=== PATIENT | male | born 1970 | race Two or more races ===

== ENCOUNTER 2020-01-09 19:14 | Emergency (ER) | payer MEDICAID ==
[~2020-01-09] VITALS: Ht 162.6 cm; Wt 68.0 kg
--- NOTE | 2020-01-09 19:35 | Emergency Room Report ---
History of Present Illness General Chief Complaint: Lower Extremity Injury Source: Patient Present Illness HPI Patient is a 49-year-old male past medical history of being overweight and hyperlipidemia who presents to the ER with 2 complaints. Patient complains of right lower extremity intermittent paresthesias. He states that the paresthesias began over a week ago. He states that he feels it more when he is been standing for a while or holding something heavy. He states that it is a tingling that runs along the side of his leg. He denies any trauma, fever, rash , focal weakness, changes to his bowel or bladder habits or history of IV drug use. He states that right now is a 1/10. Patient also complains of nausea. He states that it is associated with a sour taste in his mouth. He denies any vomiting. He denies any abdominal pain, constipation or diarrhea. Denies any chest pain or shortness of breath. Patient states that he is able to ambulate without any difficulty. Allergies: Coded Allergies: No Known Allergies (Unverified , 01/09/20) COVID-19 Screening Contact w/high risk pt: No Recent Travel to affected area: No Experienced COVID-19 symptoms?: No COVID-19 Testing performed TREATMENT COORDINATOR: No Patient History Reviewed Nursing Documentation: PMH: Agreed; PSxH: Agreed Review of Systems All Other Systems: negative except mentioned in HPI Physical Exam Vital Signs Date Time Temp Pulse Resp B/P (MAP) Pulse Ox O2 Delivery O2 Flow Rate FiO2 01/09/20 19:18 98.8 65 16 127/84 (98) 97 Room Air Sp02 EP Interpretation: reviewed, normal General Appearance: no apparent distress, alert, GCS 15, non-toxic Head: normocephalic, atraumatic Eyes: bilateral eye normal inspection, bilateral eye PERRL ENT: hearing grossly normal, normal pharynx, no angioedema, normal voice Neck: full range of motion, supple/symm/no masses Respiratory: chest non-tender, lungs clear, normal breath sounds, speaking full sentences Cardiovascular #1: regular rate, rhythm, no edema Gastrointestinal: normal bowel sounds, non tender, soft, non-distended, no guarding, no rebound, overweight Rectal: other - No saddle anesthesia, able to squeeze butt cheeks together Genitourinary: no CVA tenderness Musculoskeletal: back normal, normal range of motion, no calf tenderness, moves extm spontaneously, gait/station normal, no lower extremity edema, other - Right lateral lower lumbar back pain with no midline tenderness and no step- offs Neurologic: alert, motor strength/tone normal, hot roller III-XII nml as tested, oriented x3, sensory intact, responsive, speech normal, other - Has no current paresthesias Psychiatric: no suicidal/homicidal ideation Reflexes: 2+ knee (R), 2+ knee (L) Skin: no rash Lymphatic: no adenopathy Medical Decision Making Diagnostic Impression: Primary Impression: GERD (gastroesophageal reflux disease) Additional Impressions: Paresthesia Herniated lumbar intervertebral disc Bertolotti's syndrome ER Course I suspect the paresthesia that the patient is presenting with is non-emergent in etiology. Regarding the history, the patient denies gradual onset, trauma, fevers, night sweats, history of malignancy, pain worse at night, IVDU or refractory pain. Given these pertinent negatives in the history an emergent cause of the paresthesia is less likely. Also doubt cardiovascular cause of back pain such as aortic dissection or ruptured abdominal aortic aneurysm given patient with equal pulses in all 4 extremities with no diastolic murmur, or pulsatile abdominal mass. Epidural abscess considered unlikely given no fever or history of IVDU. The patient does not have history of malignancy so doubt metastasis to bone. Also doubt caudaequina syndrome since patient with no history of urinary/fecal incontinence or focal weakness or change in sensation. The patient was counseled that, though unlikely, the possibility of an emergent cause of paresthesia may still be present and that the patient should return immediately if symptoms persists or worsen. I believe the patient is stable for discharge to follow-up with their PMD for further workup and possible MRI. I have told him to obtain orthopedic/spine referral and given him a copy of his CT findings. Last Vital Signs Date Time Temp Pulse Resp B/P (MAP) Pulse Ox O2 Delivery O2 Flow Rate FiO2 01/09/20 19:18 98.8 65 16 127/84 (98) 97 Room Air Disposition: HOME, SELF-CARE Condition: Stable Scripts Famotidine* (Pepcid 20mg tablet*) 20 Mg Tablet 20 MG ORAL DAILY, #30 TAB 0 Refills Prov: Tawny Gipson M.D. 01/09/20 Ondansetron* (ZOFRAN*) 4 Mg Tablet 4 MG ORAL Q6H PRN for Nausea & Vomiting, #10 TAB Prov: aTwny Gipson M.D. 01/09/20 Additional Instructions: The patient was provided with discharge instructions, notified to follow-up with a primary care doctor and or specialist in the next 24-48 hours, and to return to the ED if they have worsening of their symptoms. Please note that this report is being documented using DRAGON technology. This can lead to erroneous entry secondary to incorrect interpretation by the dictating instrument. Tawny Gipson M.D. Jan 09, 2020 19:35
--- NOTE | 2020-01-09 19:35 | NUR ---
ED Nurse Note: Patient walked in c/o pain and numbness on RT foot for one week. Pt stated he has noticed swelling. Pt stated nausea. AAO x4, VSS at this time.
--- NOTE | 2020-01-09 19:36 | NUR ---
ED Nurse Note: Patient taken to CT
--- NOTE | 2020-01-09 19:55 | NUR ---
ED Nurse Note: patient is back
--- NOTE | 2020-01-09 20:12 | Diagnostic Imaging Report ---
EXAM: CT Lumbar Spine Without Intravenous Contrast CLINICAL HISTORY: PAIN TECHNIQUE: Axial computed tomography images of the lumbar spine without intravenous contrast. CTDI is 13.3 mGy and DLP is 527.3 mGy-cm. One or more of the following dose reduction techniques were used: automated exposure control, adjustment of the mA and/or kV according to patient size, use of iterative reconstruction technique. COMPARISON: No relevant prior studies available. FINDINGS: Vertebrae: There are 5 lumbar type vertebrae. L5 is partially sacralized bilaterally and shows pseudoarthrosis on the right at the transverse process-sacral articulation. No acute fracture. Soft tissues: Unremarkable. DISCS/SPINAL CANAL/NEURAL FORAMINA: L1-L2: Unremarkable. No significant disc disease. No stenosis. L2-L3: Unremarkable. No significant disc disease. No stenosis. L3-L4: Unremarkable. No significant disc disease. No stenosis. L4-L5: There is disc bulge and loss of height at L4-L5 with vacuum phenomenon. Mild central canal narrowing at L4-L5 is likely present due to disc degenerative change. L5-S1: Mild disc loss of height at L5-S1. No significant stenosis. Other findings: There is also early right greater than left sacroiliac degenerative change. The visualized hips are unremarkable. IMPRESSION: 1. No fracture or malalignment in the lumbar spine but L4-L5 degenerative change could result in mild central canal narrowing. 2. Partial sacralization of L5 right greater than left with pseudoarthrosis of the right lumbar sacral junction. Correlate for any evidence of Bertolotti's syndrome.
[2020-01-09] MEDS ORDERED: ZOFRAN4 M3 ORAL (20:17)
[2020-01-09] MEDS ORDERED: FAMOTIDINE20 MG ORAL (20:17)
[2020-01-09 20:28] VITALS: BP 127/84
--- NOTE | 2020-01-09 20:29 | NUR ---
ED Nurse Note: Pt cleared by health care Provider for discharge. DC instructions/prescription was given and explained to pt and verbalized understanding of teachings. All medical deviecs such as ID band removed. Pt is AAO x4, ambulatory and left with all personal belongings.
== END 2020-01-09 20:31 | disposition home or self-care (01) ==
LOC: EMR 19:47
DX: K21.9 Gastro-esophageal reflux disease without esophagitis (principal); R20.2 Paresthesia of skin; M51.26 Other intervertebral disc displacement, lumbar region; Q76.49 Other congenital malformations of spine, not associated with scoliosis; E78.5 Hyperlipidemia, unspecified
CPT/HCPCS: 72131; Z7502; 99284